=== PATIENT | male | born 1950 | race Caucasian/White ===

== ENCOUNTER → 2020-05-15 11:00 | Outpatient (CLI) | payer MEDICARE, SELFPAY ==
[2020-05-15 11:47] LABS: Alanine Aminotransferase 33 IU/L (<50); Albumin 4.3 g/dL (3.5-5.0); Albumin Globulin Ratio 1.4 (1.0-2.8); Alkaline Phosphatase 73 U/L (38-126); Aspartate Aminotransferase 40 IU/L (17-59); BUN Creatinine Ratio 17.7 (6-22); Bilirubin Total 0.8 mg/dL (0.2-1.3); Blood Urea Nitrogen 20 mg/dL (9-20); Calcium 9.5 mg/dL (8.4-10.2); Carbon Dioxide 28 mmol/L (22-32); Chloride 102 mmol/L (98-107); Estimated Glomerular Filt Rate > 60.0 mL/min (>60); Glucose 91 mg/dL (80-110); HEMOLYSIS < 15 (0-50); Potassium 4.4 mmol/L (3.4-5.1); Sodium 137 mmol/L (137-145); Total Protein 7.3 g/dL (6.3-8.2)
== END ==
PROVIDERS: Family Provider Orthopaedic Surgery; PCP Family Medicine; Referring Provider Family Medicine; Visit Provider Family Medicine
DX: E87.5 Hyperkalemia (principal)
CPT/HCPCS: 36415; 80053

== ENCOUNTER → 2022-02-09 11:26 | Outpatient (CLI) | payer MEDICARE, SELFPAY ==
--- NOTE | 2022-02-09 | DI.RAD.S_ITS ---
PROCEDURE: XR SHOULDER LT MIN 2V INDICATIONS: Low back pain, unspecified/Pain in left shoulder TECHNIQUE: Three views of the shoulder were acquired. COMPARISON: None. FINDINGS: Bones: No fractures or dislocations. No suspicious bony lesions. Small humeral head bone island. Visualized ribs appear intact. Soft tissues: No suspicious soft tissue calcifications. IMPRESSION: No visible fracture or shoulder separation. Dictated by: Vi Miller M.D. on 02/09/2022 at 13:46 Approved by: Vi Miller M.D. on 02/09/2022 at 13:47
--- NOTE | 2022-02-09 | DI.RAD.S_ITS ---
PROCEDURE: XR LUMBAR SPINE 2-3V INDICATIONS: Low back pain, unspecified/Pain in left shoulder TECHNIQUE: 3 views of the lumbar spine were acquired. COMPARISON: None. FINDINGS: Bones: 5 [id number] vertebrae are present. Levoscoliosis. Moderate degenerative change. Lower lumbar spine facet joint hypertrophy. No vertebral body compression fractures. No suspicious bony lesions. Soft tissues: Overlying bowel gas pattern is normal. No suspicious soft tissue calcifications. IMPRESSION: No compression fracture. Moderate degenerative change. Dictated by: Nabil Weir M.D. on 02/09/2022 at 13:18 Approved by: Nabil Weir M.D. on 02/09/2022 at 13:19
== END ==
PROVIDERS: Family Provider Orthopaedic Surgery; PCP Family Medicine; Referring Provider Family Medicine; Visit Provider Family Medicine
DX: M25.512 Pain in left shoulder (principal); M54.50 Low back pain, unspecified; M47.816 Spondylosis without myelopathy or radiculopathy, lumbar region
CPT/HCPCS: 72100; 73030

== ENCOUNTER → 2023-03-01 12:02 | Outpatient (CLI) | payer MEDICARE, SELFPAY ==
--- NOTE | 2023-03-01 12:03 | DI.MRI.S_ITS ---
PROCEDURE: MR PELIS WO/W CON INDICATIONS: Elevated PSA TECHNIQUE: Coronal HASTE, axial T1 FSE with fat saturation, 3-plane nonbreath-hold T2 FSE. After the administration of contrast, dynamic axial, delayed axial and coronal VIBE or 2-D FLASH with fat saturation through the pelvis. Optional diffusion weighted imaging and ADC may be performed. COMPARISON: None. FINDINGS: Image quality: Diffusion weighted and dynamic contrast enhanced images are diagnostic. Prostate: Gland size is 5.4 x 3.7 x 5.4 cm; ellipsoid gland volume is 52 mL. Lesion 1: Location: Right, medial peripheral zone of the apex. This is best seen on series 4, image 14 and sagittal series 6, image 9. Size: 0.5 x 0.5 mm T2 signal: Mildly hypointense DWI: Isointense ADC: Mildly hypointense Enhancement: Positive Extracapsular extension: No PI-RADS score: 3 Genitourinary system: Bladder wall thickness is normal. Distal ureters are non distended. Bladder wall diverticula. Bowel and peritoneum: No pathologic free pelvic fluid. Inferior colon and small bowel loops are normal in caliber. Nodes and vessels: No pelvic or inguinal adenopathy by size criteria. Iliac vessels are normal in caliber. Soft tissues: Fat within the inguinal canals Bones: Marrow demonstrates normal overall signal, without lesions to suggest metastases. IMPRESSION: PI-RADS 3 lesion, as above. No pelvic adenopathy. No aggressive osseous abnormality Bladder wall diverticula, suggestive of chronic outlet obstruction. Dictated by: Rafael Hahn M.D. on 03/01/2023 at 13:24 Approved by: Rafael Hahn M.D. on 03/01/2023 at 13:34
== END ==
PROVIDERS: Family Provider Orthopaedic Surgery; PCP Family Medicine; Referring Provider Specialist; Visit Provider Specialist
DX: N42.9 Disorder of prostate, unspecified (principal); N32.3 Diverticulum of bladder; R97.20 Elevated prostate specific antigen [PSA]; R39.89 Other symptoms and signs involving the genitourinary system
CPT/HCPCS: 72197

== ENCOUNTER → 2023-12-03 07:16 | Outpatient (CLI) | payer MEDICARE, SELFPAY ==
--- NOTE | 2023-12-03 07:17 | DI.US.S_ITS ---
PROCEDURE: US ABD AORTA ANEURYSM SCREEN INDICATIONS: AAA SCREENING TECHNIQUE: Real-time scanning was performed of the aorta and proximal common iliac arteries, with image documentation. COMPARISON: None. FINDINGS: Aorta: Abdominal aorta is normal in caliber throughout its length. The proximal portion is somewhat poorly seen due to bowel gas but measures approximate 2.3 cm in diameter, mid aorta measures 2.2 cm in diameter, distal aorta measures 1.9 cm in diameter, the right and left common iliac arteries measure 1.0 and 0.9 cm respectively in diameter, normal. Iliacs: As above IMPRESSION: No evidence of abdominal aortic or iliac artery aneurysm Dictated by: Yung Aragon M.D. on 12/03/2023 at 10:38 Approved by: Yung Aragon M.D. on 12/03/2023 at 10:40
== END ==
LOC: US 07:16
PROVIDERS: Family Provider Orthopaedic Surgery; PCP Family Medicine; Referring Provider Family Medicine; Visit Provider Family Medicine
DX: Z13.6 Encounter for screening for cardiovascular disorders (principal)
CPT/HCPCS: 76706

== ENCOUNTER 2024-02-09 10:24 | Day surgery (SDC) | payer MEDICARE, SELFPAY ==
[2024-02-09] VITALS (7 sets, daily range): BP systolic 94–132; BP diastolic 67–89; PULSE 76–94; RESP 14–26; TEMP 36.3–37.2; O2SAT 91–96
--- NOTE | 2024-02-09 10:49 | PM.HP.1 ---
History of Present Illness History of Present Illness Date Patient Seen: 02/09/24 Chief complaint: SDC Narrative: Ten year screening colonoscopy [facility] Medical History BPH loc w/o ur obs/LUTS Erectile dysfunction Elevated PSA Abnormal prostate exam Meds Home Medications and Allergies Home Medications Medication Instructions Recorded Confirmed Type adrenal cortex (porcine) 80 mg 50 mg PO 02/18/23 01/13/24 History tablet anastrozole 1 mg tablet See Rx Instructions PO DAILY 02/18/23 01/13/24 History aspirin 81 mg tablet,delayed 81 mg PO DAILY 02/18/23 01/13/24 History release (Adult Aspirin Regimen) cholecalciferol (vitamin D3) 125 125 mcg PO DAILY 02/18/23 01/13/24 History mcg (5,000 unit) capsule lisinopril 20 mg tablet 20 mg PO BID 02/18/23 01/13/24 History omega-3 fatty acids 1,000 mg 1,000 mg PO BID 02/18/23 01/13/24 History capsule prasterone (dhea)/calcium tab PO 02/18/23 01/13/24 History phosphate dibasic 25 mg-43 mg tablet red yeast rice 600 mg tablet 1,200 mg PO BID 02/18/23 01/13/24 History thyroid (pork) 60 mg tablet 60 mg PO DAILY 02/18/23 01/13/24 History (Blair Thyroid) triamterene 37.5 1 cap PO DAILY 02/18/23 01/13/24 History mg-hydrochlorothiazide 25 mg capsule vit E-borage oil 1,000 mg-gla 240 cap PO 02/18/23 01/13/24 History mg-linoleic acid 378 mg capsule vitamin K2 (MK-4) 100 mcg tablet See Rx Instructions PO .COMPLEX 02/18/23 01/13/24 History vitamins B1 2.5 mg-B2 2.5 1 tab PO DAILY 02/18/23 01/13/24 History mg-niacin 5 mg-B12 100 mcg-protease tablet (B-Complex With B-12) zinc gluconate 30 mg tablet 30 mg PO DAILY 02/18/23 01/13/24 History zolpidem 10 mg tablet PO 02/18/23 01/13/24 History Allergies Allergy/AdvReac Type Severity Reaction Status Date / Time No Known Drug Allergies Allergy Unverified 08/18/23 10:07 Exam Narrative Exam Narrative: Oropharynx free of lesions Chest clear to auscultation percussion Cardiac exam reveals no S3 or murmur Assessment & Plan Assessment & Plan narrative: Ten year screening colonoscopy. Risks benefits alternatives have been explained.
--- NOTE | 2024-02-09 10:50 | PM.OP.COLON ---
Operative Date/Time/Diagnoses Date of procedure: 02/09/24 Pre-op diagnosis: See indication and findings Procedure & Clinicians Study performed: Colonoscopy Indications: 10 year screening Surgeon: Jamee Motta Procedure Notes Procedure in detail: After informed consent was obtained the patient was placed in left lateral decubitus position. The video colonoscope was introduced the rectum slowly advanced to the cecum. Preparation was good. On slow withdrawal mucosa was carefully examined. The scope was removed. The patient tolerated procedure well. Blood loss none Complications none Sedation mac Findings 1. Extensive sigmoid diverticulosis 2. Otherwise negative colonoscopy to cecum This could represent the patient's last colonoscopy for screening purposes.
[2024-02-09] MEDS: LACTATED RINGERS 1,000 ML 42 ML IV (10:53)
== END 2024-02-09 12:44 | disposition home or self-care (01) ==
PROVIDERS: Family Provider Orthopaedic Surgery; PCP Family Medicine; Referring Provider Internal Medicine Gastroenterology; Visit Provider Internal Medicine Gastroenterology
PROC: 0DJD8ZZ Inspection of Lower Intestinal Tract, Via Natural or Artificial Opening Endoscopic (ICD-10-PCS; CPT 45378; principal; 2024-02-09 11:30)
DX: Z12.11 Encounter for screening for malignant neoplasm of colon (principal); K57.30 Diverticulosis of large intestine without perforation or abscess without bleeding
CPT/HCPCS: G0121; J2704

== ENCOUNTER → 2024-06-02 07:18 | Outpatient (CLI) | payer MEDICARE, SELFPAY ==
--- NOTE | 2024-06-02 | DI.MRI.S_ITS ---
PROCEDURE: MR LUMBAR SPINE WO CON INDICATIONS: RADICULOPATHY TECHNIQUE: Noncontrast sagittal T1 spin echo and T2 fast echo, sagittal STIR, and T2 fast spin echo through the lumbar spine. In cases with scoliosis, additional coronal T2 fast spin echo may be performed. COMPARISON: None. FINDINGS: Image quality: Excellent. Alignment and Curvature: There is [id number] levoscoliosis of lumbar spine with apex at L2-3 level. Bone Marrow: There is no marrow edema.. No acute vertebral body compression fractures. Spinal Cord: Conus medullaris terminates at the L1 level. Visualized cord demonstrates normal signal and size. Paraspinous Soft Tissues: No paravertebral masses. T12-L1: Loss of disc height and disc signal. Mild diffuse disc bulge and bilateral facet arthrosis is seen with mild central canal stenosis and mild right-sided neural foraminal narrowing. L1-L2: Loss of disc height and disc signal. Central to right-sided disc herniation and bilateral facet arthrosis with mild hypertrophy of ligamentum flavum causing moderate right-sided neural foraminal narrowing and mild central canal stenosis. Mild left-sided neural foraminal narrowing is also present. L2-L3: Loss of disc height and disc signal. Broad-based disc bulge and bilateral facet arthrosis with hypertrophy of ligamentum flavum causing moderate central canal stenosis and moderate to severe right-sided neural foraminal narrowing, [id number] left-sided neural foraminal narrowing. L3-L4: Loss of disc height and disc signal. Broad-based disc bulge and bilateral facet arthrosis with hypertrophy of ligamentum flavum causing [id number] central canal stenosis and severe bilateral neural foraminal narrowing. Bulging disc likely contacting bilateral exiting L3 nerve roots. L4-L5: Loss of disc height and disc signal. Broad-based disc bulge and bilateral facet arthrosis with hypertrophy of ligamentum flavum causing moderate to severe central canal stenosis and severe bilateral neural foraminal narrowing. There is likely compression of bilateral L4 and L5 nerve roots. L5-S1: Loss of disc height and disc signal. Broad-based disc bulge and bilateral facet arthrosis with mild central canal stenosis and mild right-sided neural foraminal narrowing. IMPRESSION: 1. [id number] levoscoliosis of lumbar spine with apex at L2-3 level. No marrow edema. No acute compression fracture or significant spondylolisthesis. 2. Degenerative disc disease and bilateral facet arthrosis throughout lumbar spine causing various degrees of central canal stenosis and bilateral neural foraminal narrowing as described above. Dictated by: Angelo Perales M.D. on 06/02/2024 at 13:30 Approved by: Angelo Perales M.D. on 06/02/2024 at 13:41
== END ==
LOC: MRI 07:19
PROVIDERS: Family Provider Orthopaedic Surgery; PCP Family Medicine; Referring Provider Family Medicine; Visit Provider Family Medicine
DX: M51.16 Intervertebral disc disorders with radiculopathy, lumbar region (principal); M51.17 Intervertebral disc disorders with radiculopathy, lumbosacral region; M47.26 Other spondylosis with radiculopathy, lumbar region; M47.27 Other spondylosis with radiculopathy, lumbosacral region; M48.061 Spinal stenosis, lumbar region without neurogenic claudication; M48.07 Spinal stenosis, lumbosacral region; M41.9 Scoliosis, unspecified
CPT/HCPCS: 72148